=== PATIENT | female | born 1990 ===

== ENCOUNTER 2016-10-17 10:35 | Emergency (ER) | payer MEDICAID ==
[2016-10-17 10:38] VITALS: BMI 34.3
[2016-10-17 10:41] VITALS: BP 117/77; PULSE 87; RESP 17; TEMP 98.1; O2SAT 100
[2016-10-17] MEDS ORDERED: Lidocaine 1% Inj (20ml) IJ STA (10:49)
--- NOTE | 2016-10-17 11:01 | ED PDOC ---
Lower Extremity Pain/Injury Time Seen by Provider: 10/17/16 10:43 Chief Complaint (Nursing): Lower Extremity Problem/Injury Chief Complaint (Provider): right toe injjury History Per: Patient History/Exam Limitations: no limitations - Ankle/Foot Description Of Injury: Struck Against Object (states glass table fell onto 1st digit right foot now with bleeding under first digit nail with swelling and pain . dec ROM tetanus uptodate. ) Past Medical History Vital Signs: Last Vital Signs Temp 98.1 F 10/17/16 10:39 Pulse 87 10/17/16 10:39 Resp 17 10/17/16 10:39 BP 117/77 10/17/16 10:39 Pulse Ox 100 10/17/16 10:39 - Medical History PMH: Anxiety - Surgical History Surgical History: Cholecystectomy - Family History Family History: States: No Known Family Hx - Home Medications Home Medications: Ambulatory Orders Medication Instructions Recorded Cephalexin [cephalexin] 500 mg PO BID #20 cap 10/17/16 - Allergies Allergies/Adverse Reactions: Allergies Allergy/AdvReac Type Severity Reaction Status Date / Time No Known Allergies Allergy Verified 10/17/16 10:48 Review of Systems ROS Statement: Except As Marked, All Systems Reviewed And Found Negative Musculoskeletal: Positive for: Foot Pain Physical Exam - Reviewed Nursing Documentation Reviewed: Yes Vital Signs Reviewed: Yes - Physical Exam Appears: Positive for: Well, Non-toxic, No Acute Distress Skin: Positive for: Normal Color, Warm, DRY Cardiovascular/Chest: Positive for: Regular Rate, Rhythm Respiratory: Positive for: CNT, Normal Breath Sounds Extremity: Positive for: Other (1st digit right foot: swelling to toe under nail (nail kazakh noted) bleeding with lose nail. good pulses dec ROM) Neurologic/Psych: Positive for: Alert, Oriented - ECG O2 Sat by Pulse Oximetry: 100 - Radiology X-Ray: Interpreted by Me (communited fracture to 1st digit right foot DIP) - Progress ED Course And Treament: xray and podiatry consult. pt will be given perocet for pain due to fracute Medical Decision Making Medical Decision Making: PT had toe nail removed by podiatry placed in surgical shoe and will have f/u with podiatry Disposition - Clinical Impression Clinical Impression: Toe fracture - Patient ED Disposition Is Patient to be Admitted: No Counseled Patient/Family Regarding: Studies Performed, Diagnosis, Need For Followup, Rx Given - Disposition Referrals: Podiatry Clinic [Outside] Disposition: Routine/Home Disposition Time: 12:40 Condition: STABLE Prescriptions: Cephalexin [cephalexin] 500 mg PO BID #20 cap Instructions: Toe Fracture (ED) Forms: [facility] (Libyan)
[2016-10-17] MEDS ORDERED: Oxycodone/Acetaminophen 5/325 mg Tab PO STA (11:07)
--- NOTE | 2016-10-17 11:16 | RAD ---
PROCEDURE: Right Foot Radiographs. HISTORY: injury to 1st digit COMPARISON: None available. FINDINGS: BONES: Comminuted minimally displaced fracture of the distal 1st phalanx. JOINTS: No dislocation. SOFT TISSUES: Soft tissue swelling. No evidence of radiopaque foreign body. OTHER FINDINGS: None. IMPRESSION: Comminuted minimally displaced fracture of the distal 1st phalanx with associated soft tissue swelling.
[2016-10-17] MEDS ORDERED: TDAP Vaccine 0.5 mL Syr IM ONE (11:30)
[2016-10-17] MEDS ORDERED: Lidocaine 1% Inj (20ml) ONE (11:34)
[2016-10-17] MEDS ORDERED: Oxycodone/Acetaminophen 5/325 mg Tab ONE (11:48)
[2016-10-17] MEDS ORDERED: Acetaminophen-Codeine 300/30 mg Tab PO STA (13:02)
[2016-10-17] MEDS ORDERED: Acetaminophen-Codeine 300/30 mg Tab ONE (13:06)
--- NOTE | 2016-10-17 18:14 | CP.PCM.CON ---
History of Present Illness - History of Present Illness History of Present Illness: 26 year old female patient seen in the ED at the request of a podiatry consult. Patient states that she was getting ready for work when a glass table top fell on top of her right big toe. Patient states this occurred less than an hour ago. Patient rates the pain in her foot a 8/10 and describes the pain as throbbing. Patient states she is unable to ambulate on her right foot. Patient does not know current tetanus status. Patient denies N/V/F/D/C/SOB/calf pain. No other pedal complaints at this time. PMH: anxiety PSH: cholecystectomy FH: non-contributory SH: occasional ETOH Meds: see meds list All: NKDA Review of Systems - Review of Systems All systems: reviewed and no additional remarkable complaints except (as per HPI ) Past Patient History - Past Social History Smoking Status: Light Smoker < 10 Cigarettes Daily - PSYCHIATRIC Hx Anxiety: Yes - SURGICAL HISTORY Hx Cholecystectomy: Yes - ANESTHESIA Hx Anesthesia: Yes Hx Anesthesia Reactions: No Meds Home Medications: Home Medication List Medication Instructions Recorded Confirmed Type Cephalexin [cephalexin] 500 mg PO BID #20 cap 10/17/16 Rx Allergies/Adverse Reactions: Allergies Allergy/AdvReac Type Severity Reaction Status Date / Time No Known Allergies Allergy Verified 10/17/16 10:48 Physical Exam - Constitutional Appears: Well, Non-toxic, No Acute Distress - Extremities Exam Additional comments: RLE focused physical exam: Vasc: DP and PT pulses palpalbe 2/4. CFT <3 seconds to all digits. Edema noted to hallux. Active bleeding noted to hallucal nail bed. Neuro: Gross sensation intact Derm: Partially avulsed hallucal nail secondary to trauma. Upon total nail avulsion, hallucal nail bed is noted to have a 2cm laceration which probes to bone. No erythema, purulence, malodor noted. No clinical signs of infection noted at this time. Ortho: Pain on palpation 1st met head. Pain upon 1st MPJ ROM. Pain on palpation hallux. Pain on ROM IPJ. Active hallucal plantarflexion and dorsiflexion noted but with pain. - Neurological Exam Neurological exam: Alert, Oriented x3 - Psychiatric Exam Psychiatric exam: Normal Affect, Normal Mood Results - Vital Signs Recent Vital Signs: Last Vital Signs Temp 98.1 F 10/17/16 10:39 Pulse 87 10/17/16 10:39 Resp 17 10/17/16 10:39 BP 117/77 10/17/16 10:39 Pulse Ox 100 10/17/16 12:41 Assessment & Plan - Assessment and Plan (Free Text) Assessment: 26 year old female with R hallux comminuted distal phalanx fx and laceration to hallucal nail bed secondary to trauma Plan: Patient seen and evaluated in ED Discussed with attending, Dr. Perales Chart, vitals reviewed = afebrile R foot XR reviewed = Comminuted minimally displaced fracture of the 1st distal phalanx right foot with associated soft tissue swelling R foot was cleansed with betadine/saline mixture 7ccs 1% lidopaine plain injected into R foot in a hallux block type fashion. R hallux total nail avulsion performed without incident. Patient tolerated the procedure well R hallux nail bed laceration sutured using 4-0 monocryl without incident. Bacitracin applied to hallucal nail bed and dressed with 4x4s and coban Surgical shoe dispensed to patient Crutches dispensed to patient. Recommend crutch training Patient is to be WB to heel as tolerated with the assistance of crutches Patient is to follow up with Dr. Perales in office next week Stable per podiatry standpoint Thank you for this consult, please reconsult podiatry again as needed
== END 2016-10-17 13:56 | disposition home or self-care (01) ==
LOC: H.ER 10:35
DX: S92.411A Displaced fracture of proximal phalanx of right great toe, initial encounter for closed fracture (principal); W22.8XXA Striking against or struck by other objects, initial encounter; Y92.89 Other specified places as the place of occurrence of the external cause

== ENCOUNTER 2017-06-28 15:36 | Emergency (ER) | payer MEDICAID ==
[2017-06-28 15:36] VITALS: BMI 34.3
[2017-06-28 15:56] VITALS: BP 128/79; PULSE 79; RESP 16; TEMP 98.8; O2SAT 97
--- NOTE | 2017-06-28 16:38 | ED PDOC ---
HPI: Abdomen Time Seen by Provider: 06/28/17 16:09 Chief Complaint (Nursing): Abdominal Pain Chief Complaint (Provider): Abdominal Pain History Per: Patient History/Exam Limitations: no limitations Onset/Duration Of Symptoms: Hrs (x1 hour) Location Of Pain/Discomfort: RLQ Associated Symptoms: denies: Nausea, Vomiting, Diarrhea, Urinary Symptoms Additional Complaint(s): 26 y/o female presents to the ED complaining of right lower quadrant abdominal pain x 1 hour prior to arrival,not associated with nausea, vomiting, diarrhea or urinary symptoms.Last normal menstrual period ws 2 weeks ago. Denies fever or any further medical complaints. PMD: German Dalal MD Past Medical History Reviewed: Historical Data Vital Signs: Last Vital Signs Temp 98.8 F 06/28/17 15:54 Pulse 79 06/28/17 15:54 Resp 16 06/28/17 15:54 BP 128/79 06/28/17 15:54 Pulse Ox 97 06/28/17 16:41 - Medical History PMH: Anxiety - Surgical History Surgical History: Cholecystectomy - Family History Family History: States: Unknown Family Hx - Social History Current smoker - smoking cessation education provided: No Alcohol: None Drugs: Denies - Home Medications Home Medications: Ambulatory Orders Medication Instructions Recorded Cephalexin [cephalexin] 500 mg PO BID #20 cap 10/17/16 - Allergies Allergies/Adverse Reactions: Allergies Allergy/AdvReac Type Severity Reaction Status Date / Time No Known Allergies Allergy Verified 06/28/17 15:54 Review of Systems ROS Statement: Except As Marked, All Systems Reviewed And Found Negative (As per HPI, otherwise negative) Constitutional: Negative for: Fever Gastrointestinal: Positive for: Abdominal Pain (Right lower quadrant pain). Negative for: Nausea, Vomiting, Diarrhea Genitourinary Female: Negative for: Dysuria, Frequency, Incontinence, Hematuria Physical Exam - Reviewed Nursing Documentation Reviewed: Yes Vital Signs Reviewed: Yes - Physical Exam Appears: Positive for: Non-toxic, No Acute Distress Head Exam: Positive for: ATRAUMATIC, NORMAL INSPECTION, NORMOCEPHALIC Skin: Positive for: Normal Color, Warm, Dry Eye Exam: Positive for: EOMI, Normal appearance, PERRL ENT: Positive for: Normal ENT Inspection Neck: Positive for: Normal, Painless ROM, Supple Cardiovascular/Chest: Positive for: Regular Rate, Rhythm. Negative for: Murmur Respiratory: Positive for: Normal Breath Sounds. Negative for: Accessory Muscle Use, Respiratory Distress Gastrointestinal/Abdominal: Positive for: Bowel Sounds, Soft, Tenderness (Right lower quadrant) Back: Positive for: Normal Inspection Extremity: Positive for: Normal ROM. Negative for: Deformity Neurologic/Psych: Positive for: Alert, Oriented (x3) - Laboratory Results Result Diagrams: 06/28/17 16:40 06/28/17 16:40 - ECG O2 Sat by Pulse Oximetry: 97 (RA) Pulse Ox Interpretation: Normal Medical Decision Making Medical Decision Making: Time: 16:15 Initial Impression: abdominal pain Plan: CT Abd & Pelvis IV Contrast CMP Urine dipstick Urine CBC w/ differential Reevaluation Scribe Attestation: Documented by Britany Quintana acting as a scribe for Cooper Maddox MD. Scribe Attestation: All medical record entries made by the Scribe were at my direction and personally dictated by me. I have reviewed the chart and agree that the record accurately reflects my personal performance of the history, physical exam, medical decision making, and the department course for this patient. I have also personally directed, reviewed, and agree with the discharge instructions and disposition. Disposition - Clinical Impression Clinical Impression: Abdominal pain - Patient ED Disposition Is Patient to be Admitted: Transfer of Care - Disposition Disposition: Transfer of Care Disposition Time: 19:04 Condition: FAIR Forms: [employer] (Portuguese) Patient Signed Over To: Reinaldo Katz
[2017-06-28 17:15] LABS: BASO # 0.1 K/uL (0.0-0.2); BASO % 0.8 % (0.0-2.0); EOS # 0.7 K/uL (0.0-0.7); EOS % 8.2 % (0.0-4.0); LYMPH # 2.5 K/uL (1.0-4.3); LYMPH % 27.1 % (20.0-40.0); MEAN CELL VOLUME 87.4 fl (81.0-99.0); MEAN CORPUSCULAR HEMOGLOBIN 30.1 pg (27.0-31.0); MEAN CORPUSCULAR HGB CONC 34.4 g/dL (33.0-37.0); MEAN PLATELET VOLUME 9.1 fl (7.2-11.7); MONO # 0.7 K/uL (0.0-0.8); MONO % 7.9 % (0.0-10.0); NEUT # 5.1 K/uL (1.8-7.0); RBC 4.33 Mil/uL (3.80-5.20); RED CELL DISTRIBUTION WIDTH 13.1 % (11.5-14.5); WHITE BLOOD COUNT 9.1 K/uL (4.8-10.8)
[2017-06-28 17:22] LABS: ALB/GLOB RATIO 1.2 (1.0-2.1); ALBUMIN 4.1 g/dL (3.5-5.0); ALT/SGPT 39 U/L (9-52); AST/SGOT 26 U/L (14-36); BLOOD UREA NITROGEN 13 mg/dl (7-17); CALCIUM 9.6 mg/dL (8.4-10.2); GFR AFRICAN-AMERICAN > 60; GFR NON-AFRICAN AMERICAN > 60
[2017-06-28] MEDS ORDERED: Iohexol 300 100 ML IJ ONE (17:38)
--- NOTE | 2017-06-28 19:38 | ED PDOC ---
"- Laboratory Results Result Diagrams: 06/28/17 16:40 06/28/17 16:40 - ECG O2 Sat by Pulse Oximetry: 97 (RA) Medical Decision Making Medical Decision Making: Time: 1900 Patient is signed over to me by Dr. Cooper Maddox pending CT and reevaluation. Time: 19:23 Abdomen/Pelvis CT FINDINGS: Lung bases: No acute abnormality as visualized. ABDOMEN: Liver: No acute abnormality as visualized. Gallbladder and bile ducts: Status post cholecystectomy. Pancreas: No acute abnormality as visualized. Spleen: No splenomegaly. Adrenals: No acute abnormality as visualized. Kidneys and ureters: Symmetric emhancement. No hydronephrosis. Stomach and bowel: Limited evaluation without enteric contrast. No obstruction. No definitive focus of acute inflammation. Some retained fecal material in the colon. Appendix: No findings to suggest acute appendicitis. PELVIS: Bladder: No acute abnormality as visualized. Reproductive: Evidence of left adnexal cysts. Further evaluation can be performed with dedicated ultrasound. IUD in the uterus. KEVON ZAPIEN | Preliminary Radiology Report TEAM LEADER/RESEARCH PSYCHOLOGIST (QA) DISCREPANCY? If there is a discrepancy between the preliminary and final interpretation, please notify [employer] via [email or web address]. If you do not have access to our QA portal, call our QA team at [phone] CONFIDENTIALITY STATEMENT This report is intended only for the use of the referring physician, and only in accordance with law, If you received this in error, call [phone] Page 2 of 2 ABDOMEN and PELVIS: Intraperitoneal space: No free air. No significant fluid collection. Bones/joints: No acute abnormality as visualized. Soft tissues: No acute abnormality as visualized. Vasculature: No acute abnormality as visualized. No abdominal aortic aneurysm. Lymph nodes: Shotty nodes. IMPRESSION: No definitive acute CT finding to correspond to reported history. Evidence of left adnexal cysts. Further evaluation can be performed with dedicated ultrasound. Please see additional details/findings as above. Correlate clinically. Followup as warranted. Time: 20:00 --Patient reports resolution of pain --Follow up with PMD --Patient advised to take Advil Clinical Impression: Carlos Scribe Attestation: Documented by Britany Quintana acting as a scribe for Reinaldo Katz MD. Scribe Attestation: All medical record entries made by the Scribe were at my direction and personally dictated by me. I have reviewed the chart and agree that the record accurately reflects my personal performance of the history, physical exam, medical decision making, and the department course for this patient. I have also personally directed, reviewed, and agree with the discharge instructions and disposition. Disposition - Clinical Impression Clinical Impression: Abdominal pain, [place]mer[place] - POA Present On Arrival: None - Disposition Disposition: Routine/Home Disposition Time: 21:00 Condition: FAIR Instructions: Painful Ovulation Forms: [employer] (Occitan)"
--- NOTE | 2017-06-29 08:30 | CT ---
PROCEDURE: CT Abdomen and Pelvis with contrast HISTORY: RLQ pain COMPARISON: CT scan of the abdomen and pelvis dated 07/15/2013. TECHNIQUE: Contrast dose: 95 mL Omnipaque 300 Radiation dose: Total exam DLP = 6 overlying 0.6 mGy-cm. This CT exam was performed using one or more of the following dose reduction techniques: Automated exposure control, adjustment of the mA and/or kV according to patient size, and/or use of iterative reconstruction technique. FINDINGS: LOWER THORAX: Unremarkable. LIVER: Unremarkable. No gross lesion or ductal dilatation. GALLBLADDER AND BILE DUCTS: Prior cholecystectomy with surgical clips in place for. PANCREAS: Unremarkable. No gross lesion or ductal dilatation. SPLEEN: Unremarkable. ADRENALS: Unremarkable. No mass. KIDNEYS AND URETERS: Unremarkable. No hydronephrosis. No solid mass. VASCULATURE: Unremarkable. No aortic aneurysm. BOWEL: Unremarkable. No obstruction. No gross mural thickening. APPENDIX: Normal appendix. PERITONEUM: Unremarkable. No free fluid. No free air. LYMPH NODES: Unremarkable. No enlarged lymph nodes. BLADDER: Unremarkable. REPRODUCTIVE: Intrauterine device in place. Left adnexal cyst. BONES: No acute fracture. OTHER FINDINGS: None. IMPRESSION: No acute abdominal pelvic pathology. Normal appendix. Left adnexal cyst.
== END 2017-06-28 20:24 | disposition home or self-care (01) ==
LOC: H.ER 15:36
DX: R10.31 Right lower quadrant pain (principal); N94.0 Mittelschmerz
CPT/HCPCS: 74177; 80053; 81025; 85025; 99283; Q9967